=== PATIENT | female | born 2000 | race African-American/Black ===

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

== ENCOUNTER 2022-11-07 23:30 | Emergency (ER) | payer OTHER ==
[~2022-11-07] VITALS: Ht 165.1 cm; Wt 91.0 kg
[2022-11-07 23:37] VITALS: BP 129/79; RESP 16; O2SAT 100
[2022-11-07 23:38] VITALS: PULSE 103
[2022-11-08 01:15] VITALS: TEMP 98.3
[2022-11-08] MEDS ORDERED: ACETAMINOPHEN 325MG TABLET PO ONE (01:15)
== END 2022-11-08 03:11 | disposition home or self-care (01) ==
LOC: ER 23:30
DX: J34.89 Other specified disorders of nose and nasal sinuses (principal); F12.90 Cannabis use, unspecified, uncomplicated; Z98.890 Other specified postprocedural states
CPT/HCPCS: 99282